=== PATIENT | male | born 1975 | race American Indian/Alaskan Native ===

== ENCOUNTER 2022-08-08 04:48 | Emergency (ER) | payer OTHER ==
[2022-08-08 06:17] LABS: Basophils % (Auto) 0.2 % (0.0-1.8); Eosinophils % (Auto) 0.1 % (0.0-4.3); Hematocrit 45.1 % (35.5-45.6); Hemoglobin 14.4 gm/dl (11.8-15.2); Lymphocytes % (Auto) 17.4 % (13.4-35.0); Mean Corpuscular HGB Conc 32 % (32-34); Mean Corpuscular Volume 92 fl (84-94); Monocytes # (Auto) 0.7 K/mm3 (0.0-0.8); Monocytes % (Auto) 11.5 % (0.0-7.3); Platelet Count 221 K/mm3 (140-440); Red Cell Distribution Width 13.7 % (13.2-15.2)
[2022-08-08] MEDS ORDERED: ONDANSETRON 4 MG/2 ML INJ ONE (06:38)
[2022-08-08] MEDS ORDERED: ONDANSETRON 4 MG/2 ML INJ IV ONE (06:41)
[2022-08-08 06:45] LABS: Alanine Aminotransferase 55 units/L (7-56); Albumin 5.2 g/dL (3.9-5); BUN/Creatinine Ratio 14; Blood Urea Nitrogen 13 mg/dL (9-20); Calcium 10.3 mg/dL (8.4-10.2); Hemolysis Index 1
[2022-08-08] MEDS ORDERED: MORPHINE 4 MG/1 ML INJ IV ONE (06:55)
[2022-08-08] MEDS ORDERED: dilTIAZem 25 MG/5 ML INJ IV ONE ×2 (06:56→11:05)
[2022-08-08] MEDS ORDERED: SODIUM CHLORIDE 0.9% 1000 ML 1,000 ML IV ONE (06:56)
--- NOTE | 2022-08-08 07:01 | Emergency Department Report ---
ED Chest Pain HPI - General Chief Complaint: Chest Pain Stated Complaint: CHEST PAINS Time Seen by Provider: 08/08/22 06:39 Source: patient Mode of arrival: Ambulatory Limitations: No Limitations - History of Present Illness Initial Comments: 27-year-old male with a history of hypertension and atrial fibrillation who presents with left-sided chest pain/abdominal discomfort radiating to the back that started 2 days ago progressively getting worse. Patient also mentioned that he ran out of his atrial fibrillation medication diltiazem on Friday abou t 5 days ago. Patient rated his pain as 7/10 in severity. Patient also mentioned that he had a heavy alcohol over the weekend. Patient also reports history of pancreatitis in the past. No fever or chills reported. Patient also mention that he was not able to tolerate fluids or food without nausea and vomiting. No other modifying or associated factors noted. - Related Data Previous Rx's Medication Instructions Recorded Last Taken Type Omeprazole Magnesium [PriLOSEC Otc] 20 mg PO BID 30 Days #60 tab NS 08/08/22 Unknown Rx Ondansetron (Nf) [Zofran TAB] 8 mg PO Q8HR PRN 5 Days #15 tablet 08/08/22 Unknown Rx NS dilTIAZem CD [Cardizem Cd] 240 mg PO BID 30 Days #60 cap NS 08/08/22 Unknown Rx Allergies Allergy/AdvReac Type Severity Reaction Status Date / Time amoxicillin Allergy Severe Rash Verified 08/08/22 04:55 Heart Score - HEART Score History: Slightly suspicious EKG: Non-specific Age: 45-65 Risk factors: 1-2 risk factors Troponin: < normal limit HEART Score: 3 - EKG Read Time Time EKG Completed: 05:00 EKG Read Time: 06:55 - Critical Actions Critical Actions: 0-3 pts:0.9-1.7%risk of adverse cardiac event.Candidate for discharge ED Review of Systems ROS: Stated complaint: CHEST PAINS Other details as noted in HPI Comment: All other systems reviewed and negative Constitutional: diaphoresis Cardiovascular: chest pain Gastrointestinal: abdominal pain (Left upper radiating to back ) ED Past Medical Hx - Medications Home Medications: Home Medications Medication Instructions Recorded Confirmed Last Taken Type Omeprazole Magnesium [PriLOSEC Otc] 20 mg PO BID 30 Days #60 tab NS 08/08/22 Unknown Rx Ondansetron (Nf) [Zofran TAB] 8 mg PO Q8HR PRN 5 Days #15 tablet 08/08/22 Unknown Rx NS dilTIAZem CD [Cardizem Cd] 240 mg PO BID 30 Days #60 cap NS 08/08/22 Unknown Rx ED Physical Exam - General Limitations: No Limitations General appearance: alert, in no apparent distress - Head Head exam: Present: normal inspection - Eye Eye exam: Present: normal appearance Pupils: Present: normal accommodation - ENT ENT exam: Present: normal exam, normal orophraynx, mucous membranes dry - Neck Neck exam: Present: normal inspection, full ROM. Absent: tenderness - Respiratory Respiratory exam: Present: normal lung sounds bilaterally. Absent: respiratory distress, chest wall tenderness, accessory muscle use - Cardiovascular Cardiovascular Exam: Present: normal rhythm, tachycardia, irregular rhythm - GI/Abdominal GI/Abdominal exam: Present: soft, tenderness (LUQ), normal bowel sounds - Extremities Exam Extremities exam: Present: normal inspection, full ROM, normal capillary refill. Absent: tenderness, pedal edema - Back Exam Back exam: Absent: tenderness, CVA tenderness (R), CVA tenderness (L) - Neurological Exam Neurological exam: Present: alert, oriented X3 - Psychiatric Psychiatric exam: Present: normal affect, normal mood - Skin Skin exam: Present: warm, normal color ED Course Vital Signs 08/08/22 08/08/22 08/08/22 04:52 06:16 06:30 Temperature 99.3 F Pulse Rate 111 H 121 H 137 H Respiratory 20 20 19 Rate Blood Pressure 166/117 174/118 Blood Pressure 165/113 [Right] O2 Sat by Pulse 100 99 99 Oximetry 08/08/22 08/08/22 08/08/22 06:46 07:00 07:02 Temperature Pulse Rate 130 H 120 H 127 H Respiratory 16 19 18 Rate Blood Pressure 162/127 147/94 147/94 Blood Pressure [Right] O2 Sat by Pulse 98 98 Oximetry 08/08/22 08/08/22 08/08/22 07:16 07:30 07:46 Temperature Pulse Rate 118 H 116 H 95 H Respiratory 13 21 18 Rate Blood Pressure 128/84 134/87 121/85 Blood Pressure [Right] O2 Sat by Pulse 97 98 98 Oximetry 08/08/22 08:00 Temperature Pulse Rate 120 H Respiratory 17 Rate Blood Pressure 172/106 Blood Pressure [Right] O2 Sat by Pulse 97 Oximetry - Reevaluation(s) Reevaluation #1: 08/08/22 15:17 I called this patient Pharmacy at [facility] at [place] and was told by the pharmacist that he takes Cardizem CD 240 BID and that he has refills ready for him to picked up. Pt did not even remember his dosage or the name of the medications. BRAN score - Bran Score Age > 65: (0) No Aspirin use within the Past 7 Days: (0) No 3 or more CAD Risk Factors: (0) No 2 or more Angina events in past 24 hrs: (0) No Known CAD with more than 50% Stenosis: (0) No Elevated Cardiac Markers: (0) No ST Deviation Greater than 0.5mm: (0) No BRAN Score: 0 ED Medical Decision Making - Lab Data Result diagrams: 08/08/22 05:10 08/08/22 05:10 - EKG Data -: EKG Interpreted by Me Rate: tachycardia - EKG Data 08/08/22 07:02 Initial EKG noted with atrial fibrillation at a rate of 117 bpm and this abnormal ECG - Medical Decision Making Here with chest pain/pressure and LUQ--this is likely pancreatitis considering recent heavy alcohol drinking and with his history -- so differential could be but not limited to myocardial infarction, pulmonary embolism, costochondritis, anxiety, gastritis, GERD, and or pyelonephritis--in order to rule out the above-- so will go ahead and order routine cardiopulmonary work-up that include troponin, EKG, chest x-ray, BNP, CKMB, and CBC, CMP and urinalysis for any correctable infectious process or electrolyte abnormality as a cause. Given Morphine 4 mg + Zofran 4 mg IV x 1 for symptoms relief-- EKG noted with a-fib so will go ahead and order Cardizem 20 mg IV x 1 and will continue to monitor- torponin and lipase still pending at this point Noted with slightly elevated lipase 102 mg/dl-- consistent with mild pancreatitis-- also with unremarkable serial 2 troponin which ruled out cardiac -- pt reassure and stressed to avoid alcohol. Critical care attestation.: If time is entered above; I have spent that time in minutes in the direct care of this critically ill patient, excluding procedure time. ED Disposition Clinical Impression: Abdominal pain, left upper quadrant Chest pain Qualifiers: Chest pain type: unspecified Qualified Code(s): R07.9 - Chest pain, unspecified Pancreatitis, acute Qualifiers: Pancreatitis type: alcohol induced Acute pancreatitis complication: no infection or necrosis Qualified Code(s): K85.20 - Alcohol induced acute pancreatitis without necrosis or infection Disposition: 01 HOME / SELF CARE / HOMELESS Is pt being admited?: No Does the pt Need Aspirin: No Condition: Stable Instructions: Acute Pancreatitis, [id number], Pancreatitis Eating Plan, Abdominal Pain, Adult, [id number], Nonspecific Chest Pain, Adult, [id number] Additional Instructions: It is very important that you quit to heavy alcohol drink for your general health and to prevent exacerbation of your pancreatitis Start with bland diet advance as tolerated to prevent exacerbation of your gastritis/pancreatitis Increase your daily fluid to help your hydration Call and follow up with your doctor in 3-5 days for progress Prescriptions: dilTIAZem CD [Cardizem Cd] 240 mg PO BID 30 Days #60 cap NS Omeprazole Magnesium [PriLOSEC Otc] 20 mg PO BID 30 Days #60 tab NS Ondansetron (Nf) [Zofran TAB] 8 mg PO Q8HR PRN 5 Days #15 tablet NS PRN Reason: Nausea And Vomiting Referrals: JAGRUTI BASS MD [Primary Care Provider] - 3-5 Days Time of Disposition: 15:17
[2022-08-08] MEDS ORDERED: KETOROLAC 30 MG/1 ML INJ IV ONE (11:05)
[2022-08-08 16:03] VITALS: BP 154/94
--- NOTE | 2022-08-09 13:19 | Electrocardiograph Report ---
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
== END 2022-08-08 16:03 | disposition home or self-care (01) ==
LOC: ED 04:48
DX: R07.9 Chest pain, unspecified (principal); R10.12 Left upper quadrant pain; K85.90 Acute pancreatitis without necrosis or infection, unspecified; Z91.09 Other allergy status, other than to drugs and biological substances
CPT/HCPCS: 36415; 80048; 80053; 83690; 84484; 85025; 93005; 96361; 96374; 96375; 96376; 99283; J1885; J2270; J2405; J3490; J7030